=== PATIENT | female | born 1990 | race African-American/Black ===

== ENCOUNTER 2019-05-25 19:26 | Emergency (ER) | payer MEDICAID, OTHER ==
[~2019-05-25] VITALS: Ht 160 cm; Wt 95.0 kg
[~2019-05-25 19:26] MED LIST: IRON1CAP20 PO; PREN-55 PO
[2019-05-25] MEDS ORDERED: HYDROCODONE/ACETAMINOPHEN 5/325MG TABLET PO ONE (21:15)
[2019-05-25 22:40] VITALS: BP 116/84
== END 2019-05-25 22:45 | disposition home or self-care (01) ==
LOC: ER 19:26
DX: M25.572 Pain in left ankle and joints of left foot (principal); Z90.49 Acquired absence of other specified parts of digestive tract; Z98.890 Other specified postprocedural states; W01.0XXA Fall on same level from slipping, tripping and stumbling without subsequent striking against object, initial encounter; Y93.89 Activity, other specified; Y92.89 Other specified places as the place of occurrence of the external cause; Y99.8 Other external cause status
CPT/HCPCS: 73590; 73610; 73620; 99284